=== PATIENT | male | born 1970 ===

== ENCOUNTER 2020-11-10 13:03 | Outpatient (REF) | payer BC, SELFPAY | END 2020-11-10 13:04 | disposition home or self-care (01) | LOC: HO.LAB 13:03 | PROVIDERS: PCP Internal Medicine; Visit Provider Internal Medicine | DX: Z20.828 Contact with and (suspected) exposure to other viral communicable diseases (principal) | CPT/HCPCS: 36415; C9803; U0003 ==

== ENCOUNTER 2021-06-21 10:36 | Outpatient (REF) | payer BC, SELFPAY ==
[2021-06-21 13:49] LABS: MANUAL DIFF FLAG NO
[2021-06-21 14:00] LABS: Glucose Urine UA NEG (NEG); Leukocyte Esterase Urine NEG (NEG); Nitrite Urine NEG (NEG); Urine Blood NEG (NEG); Urine Ketones NEG (NEG); Urine Protein NEG (NEG-TRACE)
[2021-06-21 14:06] LABS: Basophils Percent Auto 0.4 % (0-2); Eosinophils Absolute Auto 0.2 X10*3/uL (0.0-0.4); Eosinophils Percent Auto 2.3 % (0-4); Hematocrit 46.1 % (42-52); Hemoglobin 14.2 g/dl (14.0-18.0); Imm Gran Abs Auto 0.06 X10*3/uL (0.00-0.03); Imm Gran Pct Auto 0.7 % (0.0-0.4); Lymphocytes Absolute Auto 2.3 X10*3/uL (1.2-4.9); Lymphocytes Percent Auto 27.3 % (20-40); Mean Corpuscular HGB Conc 30.8 g/dl (31.0-36.0); Mean Corpuscular Hemoglobin 27.7 pg (27.0-33.0); Mean Platelet Volume 11.1 fL (9.4-12.4); Monocytes Absolute Auto 0.8 X10*3/uL (0.1-1.2); Monocytes Percent Auto 9.2 % (2-11); Neutrophils Percent Auto 60.1 % (45-73); Platelet Count 275 X10*3/uL (160-400); Red Blood Count 5.12 X10*6/uL (4.60-5.80); Red Cell Distribution Width 12.9 % (11.0-16.0); White Blood Count 8.3 X10*3/uL (4.8-10.8)
[2021-06-21 14:07] LABS: Appearance Urine CLEAR; Color Urine YELLOW
[2021-06-21 14:16] LABS: Estimated Average Glucose 111 mg/dL; Hemoglobin A1C 139.1997 umol/L; Hemoglobin A1c % 5.5 %
[2021-06-21 14:34] LABS: Alanine Aminotransferase 29 U/L (0-40); Albumin Level 4.4 g/dL (3.5-5.0); Alkaline Phosphatase 93 U/L (39-117); Anion Gap 12 (12-20); Aspartate Amino Transferase 19 U/L (5-37); Bilirubin Total 0.4 mg/dL (0.0-1.0); Blood Urea Nitrogen 12 mg/dL (9-16); Calcium 9.4 mg/dL (8.4-10.2); Carbon Dioxide 28 mmol/L (22-29); Chloride 104 mmol/L (96-108); Cholesterol 155 mg/dL; Estimated Glomerular Filt Rate > 60; Glucose Fasting 97 mg/dL (60-99); HDL Cholesterol 47 mg/dL; LDL Cholesterol Calculated 94 mg/dl; Potassium 4.7 mmol/L (3.3-5.1); Sodium 139 mmol/L (135-145); Total Protein 7.1 g/dL (6.5-8.0); Triglycerides 73 mg/dL
[2021-06-21 14:55] LABS: Prostate Specific Antigen Scr 3.95 ng/mL (<0.05-4.0); TSH reflex Free T4 0.98 uIU/mL (0.32-4.0); Vitamin D 25-OH Total 23.5 ng/mL (>30)
== END 2021-06-21 10:37 | disposition home or self-care (01) ==
LOC: HO.10HDL 10:36
PROVIDERS: Visit Provider Internal Medicine
DX: Z00.00 Encounter for general adult medical examination without abnormal findings (principal); E55.9 Vitamin D deficiency, unspecified; E78.00 Pure hypercholesterolemia, unspecified; R73.01 Impaired fasting glucose
CPT/HCPCS: 36415; 80053; 80061; 81003; 82306; 83036; 84153; 84443; 85025

== ENCOUNTER → 2021-08-23 14:30 | Outpatient (BNVA) | payer BC, SELFPAY | PROVIDERS: PCP Internal Medicine; Referring Provider Internal Medicine; Visit Provider Nurse Practitioner Family ==

== ENCOUNTER 2021-10-05 10:09 | Day surgery (SDC) | payer BC, SELFPAY ==
[2021-09-27 15:18] VITALS: BMI 31.4
--- NOTE | 2021-10-04 10:30 | P.CONAN_ITS ---
Documented by User: Johanna Cruz NP 10/04/21 10:30 HPI - Anesthesia Eval Consult details Narrative: 51yo M for Colonoscopy [facility] Active Problems Active Problems: All Active Problems (Updated 06/21/21 @ 10:31 by Edenilson Mas MD) Obesity (BMI 30-39.9) (Acute) Impaired fasting glucose (Acute) Pure hypercholesterolemia (Acute) Colon cancer screening (Acute) Annual physical exam (Acute) Past Medical History Medical History Impaired fasting glucose Obesity (BMI 30-39.9) Pure hypercholesterolemia Surgical History Surgical History (Updated 10/05/21 @ 10:17 by Shannon Oswald RN) History of facial surgery History of gallbladder disease Social History Social History Housing: House Alcohol intake: current Alcohol intake frequency: holidays/special occasions only Patient Tobacco Use Status: Never used Tobacco Second Hand Smoke Exposure: Yes Use of substances other than those prescribed or required for medical reasons: No Are you DNR?: No Advance Directives: No Advance Directives Information Provided: Yes service: No Current occupational status: employed 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 [employer] Allergies Allergy/AdvReac Type Severity Reaction Status Date / Time No Known Allergies Allergy Verified 10/05/21 10:16 Exam Exam Date and Time: October 04, 2021 1030 Height,Weight and Vital Signs: Height 5 ft 6 in Weight 88.451 kg Pertinent Lab Results Pertinent Lab Results: Laboratory Tests 06/21/21 06/21/21 10:40 10:40 WBC 8.3 Hgb 14.2 Hct 46.1 Plt Count 275 Sodium 139 Potassium 4.7 Chloride 104 Carbon Dioxide 28 BUN 12 Creatinine 1.16 Assessment and Plan Assessment Anesthesia Assessment: Chart Reviewed Documented by User: Miracle Wong MD 10/05/21 10:29 [facility] Past Medical History Medical History Impaired fasting glucose Obesity (BMI 30-39.9) Pure hypercholesterolemia Family History Family history of problems with anesthesia: No Surgical History Surgical History (Updated 10/05/21 @ 10:17 by Shannon Oswald RN) History of facial surgery History of gallbladder disease History of Problems with Anesthesia: No Social History Social History Housing: House Alcohol intake: current Alcohol intake frequency: holidays/special occasions only Patient Tobacco Use Status: Never used Tobacco Second Hand Smoke Exposure: Yes Use of substances other than those prescribed or required for medical reasons: No Are you DNR?: No Advance Directives: No Advance Directives Information Provided: Yes service: No Current occupational status: employed 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 [employer] Allergies Allergy/AdvReac Type Severity Reaction Status Date / Time No Known Allergies Allergy Verified 10/05/21 10:16 Exam Airway Mallampati Class: II TM Dist: >3cm Neck ROM: Full Heart: rrr Lungs: cta Assessment and Plan Assessment Anesthesia Assessment: Anesthesia Plan Discussed and Chart Reviewed Final Anesthetic Review Family History of Problems with Anesthesia: No History of Problems with Anesthesia: No NPO: Yes ASA Class: II Final Preanesthetic Review: No Changes in Pt Med Stat, Meds/Allgs Chart Reviewed and Consent Obtained/Reviewed Patient Risk: Intermediate Procedure Risk: Intermediate Anesthetic Plan Anesthetic Plan: MAC: Disposition: Standard PACU
[2021-10-05 10:27] VITALS: BP 118/68; PULSE 76; RESP 16; TEMP 36.7; O2SAT 99
[2021-10-05] MEDS: Lactated Ringers 1,000 ML 100 ML IVCONT (10:34)
--- NOTE | 2021-10-05 10:50 | P.HPSUR_ITS ---
Pre-Procedural Eval Section A Date of Service: 10/05/21 Section B Chief Complaint: Screening Relevant Family History (Specify if Yes): No Relevant Social History: None Present Medications: see Short Stay Collaborative assessment Medical History: Significant History (Impaired fasting glucose Obesity (BMI 30- 39.9) Pure hypercholesterolemia) History of Previous Operations: Relevant previous surgery/procedure and date(s) (facial surgery, cholecystectomy) Allergies: Allergies Allergy/AdvReac Type Severity Reaction Status Date / Time No Known Allergies Allergy Verified 10/05/21 10:16 Review of Systems Sugical H&P ROS: Negative: Constitution, Cardiovascular, Respiratory, Neurological, Psychiatric, Hem-Onc, Allergic/Immunologic, Gastrointestinal, Genitourinary, Musculoskeletal, Integumentary, Endocrine and Eyes/Ears/Nose/Throat Exam Surgical H&P Exam: Normal: HEENT, Normal: Heart, Normal: Lungs, Normal: Extremities, Normal: Abdomen, Normal: Skin and Normal: Neurological Plan Diagnosis/Plan: Unchanged I have reviewed the history and physical and performed a pertinent physical examination on my patient. No changes have occurred unless specified.
--- NOTE | 2021-10-05 10:53 | P.OP_ITS ---
Operative Note Operative Note Date of Service: 10/05/21 Narrative: Operative Information Procedure Description: Colonoscopy COLONOSCOPY Instrument: Olympus variable stiffness pediatric scope 190L Colonoscopy Monitoring: Vital signs and clinical assessment, continuous EKG monitoring, Pulse oximetry, Carbon Dioxide monitoring and blood pressure monitoring were done throughout the procedure. Colon withdrawal time was 10 minutes. Procedure: The patient was placed in the left lateral decubitis position and pre-procedure medications were administered. After a digital rectal examination of the ano-rectum, the video colonoscope was inserted into the rectum and advanced through the colon to the cecum/TI. The colonoscope was slowly withdrawn in a retrograde panoramic fashion and the colon mucosa was carefully examined including a retroflexed view of the rectum. Findings and interventions are described below. Procedure Difficulty: easy Findings: Terminal Ileum-normal Cecum: 10 mm sessile polyp removed with cold snare Ascending Colon: normal Transverse Colon -normal Descending Colon:normal Sigmoid Colon: normal Rectum: Retroflexion with small internal hemorrhoids, grade I Anorectum - normal Colon preparation: [place] Bowel Preparation Scale Right colon; 2 Transverse colon: 3 Left colon; 2 (0 = Unprepared colon segment with mucosa not seen due to solid stool that cannot be cleared. 1 = Portion of mucosa of the colon segment seen, but other areas of the colon segment not well seen due to staining, residual stool and/or opaque liquid. 2 = Minor amount of residual staining, small fragments of stool and/or opaque liquid, but mucosa of colon segment seen well. 3 = Entire mucosa of colon segment seen well with no residual staining, small fragments of stool or opaque liquid) Impression and Post Procedure Diagnosis: polyp internal hemorrhoids Plan: High fiber diet leaflet Avoid straining at stool, epsom salts and sitz bath, anusol supps or cream Repeat Colonoscopy in 5 years if adenomatous polyp, otherwise 10 yrs or earlier if clinically indicated Above findings were reviewed with the patient and relevant handouts were provided if indicated.
--- NOTE | 2021-10-05 10:53 | P.BOP_ITS ---
Brief Operative Note Date of Service: 10/05/21 Pre-op diagnosis: colon screening Post-op diagnosis: same Procedure: see op note Surgeon: Heath Maldonado MD Anesthesia: MAC Was an Interactive Marketing Strategist used for this Procedure?: No Estimated blood loss (mL): 0 Condition: stable Disposition: PACU
[2021-10-05 11:25] VITALS: BP 94/71; PULSE 76; RESP 18; TEMP 37.1; O2SAT 99
[2021-10-05 11:40] VITALS: BP 115/72; PULSE 68; RESP 17; TEMP 37.1; O2SAT 100
== END 2021-10-05 12:04 | disposition home or self-care (01) ==
PROVIDERS: PCP Internal Medicine; Visit Provider Internal Medicine Gastroenterology
PROC: 0DJD8ZZ Inspection of Lower Intestinal Tract, Via Natural or Artificial Opening Endoscopic (ICD-10-PCS; CPT 45378; principal; 2021-10-05 11:50)
DX: Z12.11 Encounter for screening for malignant neoplasm of colon (principal); D12.0 Benign neoplasm of cecum; K64.0 First degree hemorrhoids; R73.01 Impaired fasting glucose; E78.00 Pure hypercholesterolemia, unspecified; E66.9 Obesity, unspecified; Z68.31 Body mass index [BMI] 31.0-31.9, adult
CPT/HCPCS: 45385; 88305

== ENCOUNTER → 2021-10-17 09:27 | Outpatient (BNVA) | payer BC, SELFPAY | PROVIDERS: PCP Internal Medicine; Referring Provider Internal Medicine; Visit Provider Nurse Practitioner Family ==

== ENCOUNTER 2022-08-21 11:16 | Outpatient (REF) | payer BC, SELFPAY ==
[2022-08-21 13:46] LABS: MANUAL DIFF FLAG NO
[2022-08-21 13:52] LABS: Basophils Absolute Auto 0.1 X10*3/uL (0.0-0.2); Basophils Percent Auto 0.9 % (0-2); Eosinophils Absolute Auto 0.3 X10*3/uL (0.0-0.4); Hematocrit 46.1 % (42.0-52.0); Hemoglobin 14.8 g/dl (14.0-18.0); Imm Gran Abs Auto 0.04 X10*3/uL (0.00-0.03); Imm Gran Pct Auto 0.6 % (0.0-0.4); Lymphocytes Absolute Auto 2.5 X10*3/uL (1.2-4.9); Lymphocytes Percent Auto 37.6 % (20-40); Mean Corpuscular HGB Conc 32.1 g/dl (31.0-36.0); Mean Corpuscular Hemoglobin 28.3 pg (27.0-33.0); Mean Corpuscular Volume 88.1 fL (80.0-98.0); Mean Platelet Volume 10.9 fL (9.4-12.4); Monocytes Absolute Auto 0.5 X10*3/uL (0.1-1.2); Monocytes Percent Auto 7.2 % (2-11); Neutrophils Absolute Auto 3.3 x10*3/uL (2.0-8.3); Neutrophils Percent Auto 49.7 % (45-73); Platelet Count 261 X10*3/uL (160-400); Red Blood Count 5.23 X10*6/uL (4.60-5.80); Red Cell Distribution Width 12.5 % (11.0-16.0); White Blood Count 6.6 X10*3/uL (4.8-10.8)
[2022-08-21 13:57] LABS: Appearance Urine Clear; Color Urine Yellow; Glucose Urine UA Negative (Negative); Leukocyte Esterase Urine Negative (Negative); Nitrite Urine Negative (Negative); PH 5.5 (5.0-9.0); Specific Gravity - Urine 1.025 (1.005-1.025); Urine Blood Negative (Negative); Urine Ketones Negative (Negative); Urine Protein Negative (Neg-Trace)
[2022-08-21 14:03] LABS: Alanine Aminotransferase 22 U/L (0-40); Albumin Level 4.4 g/dL (3.5-5.0); Alkaline Phosphatase 69 U/L (39-117); Anion Gap 15 (12-20); Aspartate Amino Transferase 17 U/L (5-37); Bilirubin Total 0.5 mg/dL (0.0-1.0); Blood Urea Nitrogen 15 mg/dL (9-16); Calcium 9.4 mg/dL (8.4-10.2); Carbon Dioxide 27 mmol/L (22-29); Chloride 103 mmol/L (96-108); Cholesterol 192 mg/dL; Estimated Average Glucose 111 mg/dL; Estimated Glomerular Filt Rate > 60; Glucose Fasting 103 mg/dL (60-99); HDL Cholesterol 54 mg/dL; Hemoglobin A1c % 5.5 %; LDL Cholesterol Calculated 124 mg/dl; Potassium 4.5 mmol/L (3.3-5.1); Sodium 140 mmol/L (135-145); Triglycerides 72 mg/dL
[2022-08-21 14:22] LABS: Syphilis Screen Nonreactive (Nonreactive)
[2022-08-21 14:28] LABS: Prostate Specific Antigen 3.36 ng/mL (<0.05-4.0); TSH reflex Free T4 1.05 uIU/mL (0.32-4.0); Vitamin D 25-OH Total 17.7 ng/mL (>30)
[2022-08-21 16:48] LABS: CT PCR NOT DETECTED (Not Detect.); NG PCR NOT DETECTED (Not Detect.)
[2022-08-22 08:43] LABS: HIV AB/AG Nonreactive (Nonreactive); HIV Num 1 0.07 S/CO (0.00-0.99)
== END 2022-08-21 11:17 | disposition home or self-care (01) ==
LOC: HO.10HDL 11:16
PROVIDERS: Visit Provider Internal Medicine
DX: Z00.00 Encounter for general adult medical examination without abnormal findings (principal); Z12.5 Encounter for screening for malignant neoplasm of prostate; Z11.4 Encounter for screening for human immunodeficiency virus [HIV]; Z11.3 Encounter for screening for infections with a predominantly sexual mode of transmission; E78.00 Pure hypercholesterolemia, unspecified; R73.01 Impaired fasting glucose; R30.0 Dysuria; E55.9 Vitamin D deficiency, unspecified; Z20.2 Contact with and (suspected) exposure to infections with a predominantly sexual mode of transmission
CPT/HCPCS: 80053; 80061; 81003; 82306; 83036; 84153; 84443; 85025; 86780; 87389; 87491; 87591

== ENCOUNTER → 2023-02-23 10:04 | Outpatient (BNVA) | payer BC, SELFPAY | PROVIDERS: PCP Internal Medicine; Visit Provider Urology | DX: Z13.89 Encounter for screening for other disorder (principal) ==

== ENCOUNTER 2023-04-12 14:22 | Outpatient (REF) | payer BC, SELFPAY | END 2023-04-12 14:23 | disposition home or self-care (01) | LOC: HO.LNP 14:22 | PROVIDERS: PCP Internal Medicine; Visit Provider Urology | DX: Z30.2 Encounter for sterilization (principal); F41.8 Other specified anxiety disorders | CPT/HCPCS: 55250; 88302 ==

== ENCOUNTER 2023-04-12 14:22 | Outpatient (AMB) | payer BC, SELFPAY ==
--- NOTE | 2023-04-12 14:27 | A.OFFVIS_ITS ---
Intake Intake Visit Reasons: Vasectomy Intake Note: Pt presents to the office today for a vasectomy. Urinalysis done. Allergies No Known Allergies Allergy (Verified 04/12/23 14:28) HPI HPI Comments History of Present Illness Details Ramón is a 52-year-old male who presents to the office for vasectomy procedure. The segment of right and left vas deferens was removed and sent to pathology. The patient is instructed to come back in 3 months for semen analysis to confirm that there is no further sperm. He is advised to use control until the analysis is done. Plan: Follow-up after 3 months for semen analysis. 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 Cognitive needs: No Hearing needs: No Vision needs: No Results AMB Urinalysis, Automated UA Leukoctes 0 Javier/uL Last Edit by Maria Fernanda Ledesma MA on 04/12/23 14:41 UA Nitrite Negative Last Edit by Maria Fernanda Ledesma MA on 04/12/23 14:41 UA Urobilinogen 0.2 mg/dL Last Edit by Maria Fernanda Ledesma MA on 04/12/23 14:41 UA Protein 0 mg/dL Last Edit by Maria Fernanda Ledesma MA on 04/12/23 14:41 UA pH 5.5 Last Edit by Maria Fernanda Ledesma MA on 04/12/23 14:41 UA Blood 0 Russ/uL Last Edit by Maria Fernanda Ledesma MA on 04/12/23 14:41 UA Specific [place] 1.030 Last Edit by Maria Fernanda Ledesma MA on 04/12/23 14:41 UA Ketone Negative Last Edit by Maria Fernanda Ledesma MA on 04/12/23 14:41 UA Bilirubin 0 mg/dL Last Edit by Maria Fernanda Ledesma MA on 04/12/23 14:41 UA Glucose 0 mg/dL Last Edit by Maria Fernanda Ledesma MA on 04/12/23 14:41 Results Reviewed Results Reviewed: Laboratory Last Values Urine pH (Auto) 5.5 04/12/23 14:29 Specific [place] (Auto) 1.030 04/12/23 14:29 Urine Protein (Auto) 0 mg/dL 04/12/23 14:29 Glucose (UA)(Auto) 0 mg/dL 04/12/23 14:29 Urine Ketones (Auto) Negative 04/12/23 14:29 Urine Blood (Auto) 0 Russ/uL 04/12/23 14:29 Urine Nitrite (Auto) Negative 04/12/23 14:29 Urine Bilirubin (Auto) 0 mg/dL 04/12/23 14:29 Urine Urobilinogen (Auto) 0.2 mg/dL 04/12/23 14:29 Leukocyte Esterase (Auto) 0 Javier/uL 04/12/23 14:29 Assessment & Plan Assessment & Plan (1) Anxiety about health: Code(s): F41.8 - Other specified anxiety disorders (2) Encounter for vasectomy: Code(s): Z30.2 - Encounter for sterilization Plan Follow-up after 3 months for semen analysis. Orders: Orders AMB Urinalysis Automated 04/12/23 Z13.9 - Encounter for screening, unspecified Surgical 04/12/23 Z30.09 - Encounter for other general counseling and advice on contraception Coding Level of Care Code Procedure Only Diagnoses Anxiety about health F41.8 Encounter for vasectomy Z30.2 CPT Codes Office Procedure - CPT: 42703 - Vasectomy ([id number]) Vasectomy Details: Preoperative diagnosis: Anxiety regarding Postoperative diagnosis: Anxiety regarding unplanned Procedure: Bilateral vasectomy Informed consent had been completed. Preoperative and postoperative instructions were provided to the patient. The penis was elevated using a rubber band that was attached to the patient's shirt. Both vasa were palpated through the skin using a 3 finger technique and the penoscrotal junction was prepped with Betadine. After Betadine application the left vas was elevated using a 3 finger grasping technique. 1% lidocaine was used to create a subdermal bubble.? Approximately 2 minutes were allowed to for local anesthetic uptake. Further anesthetic was then advanced using the 25-gauge needle along the vasa in a proximal fashion. Using the sharp spreading instrument the scrotum was spread longitudinally in line with the vasa. The vasa was elevated from the scrotum using a ring clamp. Care was taken to elevate the superior portion of the vas. Battery powered cautery was used to partially divide the vasal sheath and to strip the vasal sheath from the vasa. Using the sharp spreading instrument the vasal sheath was removed from the covering of this segment of the vas. The vasa was grasped with a forcep clamp and elevated from the incision. The ring clamp was placed so it grasped the elevated vas. The vasal sheath was dissected from the vas in a proximal and distal fashion. This allowed the blood vessels of the vasa to retract from the vasa. Using the battery-powered cautery a partial division was made in the proximal vas. The battery-powered cautery was used to cauterize the proximal end of the vas. This was then cut and allowed to retract into the vasal sheath. A clip was placed on the vasal sheath to create a fascial interposition. The distal portion of the vas was then cut in order to obtain a segment of vasa. The vasa were allowed to retract back into the scrotum. A small snap was then used to approximate the skin edges. A similar procedure was repeated on the right side. He tolerated the procedure well. A gauze was applied. An ice pack was applied to assist with minimizing swelling. Postoperative instructions were confirmed. He understands the need to continue to use control methods. A semen sample should be brought for inspection under the microscope in 12 weeks. Vasectomy performed by: Chong Ford Informed consent given: Yes Informed consent signed: Yes Time out checklist: patient, procedure, positioning of patient, allergies confirmed and team agrees on procedure Preoperative sedation: No Anesthetic used: other Specimens: vas segments sent to pathology [id number] - Vasectomy
== END 2023-04-12 16:21 | disposition home or self-care (01) ==
LOC: HO.HUSH 14:23
PROVIDERS: PCP Internal Medicine; Visit Provider Urology
DX: Z30.2 Encounter for sterilization (principal); F41.8 Other specified anxiety disorders
CPT/HCPCS: 55250

== ENCOUNTER 2023-07-12 14:08 | Outpatient (AMB) | payer BC, SELFPAY ==
--- NOTE | 2023-07-12 14:10 | A.OFFVIS_ITS ---
Intake Intake Visit Reasons: 3m seman analysis Intake Note: Patient presents today for a 3 month follow-up on Semen Urinalysis: Meds- None Allergies to Antibiotic- No Known Allergies Blood Thinner- None Street Light Repairer Required: No Accompanied by: Self / Same As Patient Allergies No Known Allergies Allergy (Verified 07/12/23 14:30) HPI HPI Comments History of Present Illness Details Ramón is a 53-year-old male who presents today to the office for a follow-up. 07/12/2023? He is followed today for semen analysis. He was last seen by me on 04/12/2023 for Vasectomy. The patient was advised to follow-up after 3 months for semen analysis during that time and prn for any concerns. He denies any swelling in the scrotum. He denies any problems with urination and intercourse at this time. Examination of the scrotum: normal; no swelling. Evaluation today--UA-- leukocytes: negative; blood: negative. Microscopic evaluation of semen: no sperm was visualized. Review of charts: Last visit: 04/12/2023? Ramón is a 52-year-old male who presents to the office for vasectomy procedure. The segment of right and left vas deferens was removed and sent to pathology.? The patient is instructed to come back in 3 months for semen analysis to confirm that there is no further sperm.? He is advised to use control until the analysis is done.? 07/12/2023: Plan: Follow up as needed. 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 Cognitive needs: No Hearing needs: No Vision needs: No Review of Systems Const All systems reviewed & are unremarkable except as noted in HPI and below Reports no additional complaints Eyes Reports no additional complaints ENT Denies neck pain Card Denies leg edema Resp Denies cough GI Denies constipation Musc Reports no additional complaints and Denies neck pain Skin/Breast Denies rash and Denies unusual bruising Neuro Reports no additional complaints Psych Reports no additional complaints Endo Reports no additional complaints Rasheed/Lymph Reports no additional complaints Aller/Immun Reports no additional complaints Results AMB Urinalysis, Automated UA Leukoctes 0 Javier/uL Last Edit by Alfredo Grey Derik on 07/12/23 14:44 UA Nitrite Negative Last Edit by Alfredo Grey [facility] on 07/12/23 14:44 UA Urobilinogen 0.2 mg/dL Last Edit by Alfredo Grey [facility] on 07/12/23 14:4 4 UA Protein 15 mg/dL Last Edit by Alfredo Grey [facility] on 07/12/23 14:44 UA pH 5.5 Last Edit by Alfredo Grey [facility] on 07/12/23 14:44 UA Blood 0 Russ/uL Last Edit by Alfredo Grey [facility] on 07/12/23 14:44 UA Specific [place] 1.030 Last Edit by Alfredo Grey Derik on 07/12/23 14: 44 UA Ketone Negative Last Edit by Alfredo Grey [facility] on 07/12/23 14:44 UA Bilirubin 0 mg/dL Last Edit by Alfredo Grey [facility] on 07/12/23 14:44 UA Glucose 0 mg/dL Last Edit by Alfredo Grey [facility] on 07/12/23 14:44 Results Reviewed Results Reviewed: Laboratory Last Values Urine pH (Auto) 5.5 07/12/23 14:44 Specific [place] (Auto) 1.030 07/12/23 14:44 Urine Protein (Auto) 15 mg/dL 07/12/23 14:44 Glucose (UA)(Auto) 0 mg/dL 07/12/23 14:44 Urine Ketones (Auto) Negative 07/12/23 14:44 Urine Blood (Auto) 0 Russ/uL 07/12/23 14:44 Urine Nitrite (Auto) Negative 07/12/23 14:44 Urine Bilirubin (Auto) 0 mg/dL 07/12/23 14:44 Urine Urobilinogen (Auto) 0.2 mg/dL 07/12/23 14:44 Leukocyte Esterase (Auto) 0 Javier/uL 07/12/23 14:44 Assessment & Plan Assessment & Plan (1) Anxiety about health: Code(s): F41.8 - Other specified anxiety disorders (2) S/P vasectomy: Code(s): Z98.52 - Vasectomy status Plan Follow up as needed. Orders: Orders AMB Urinalysis Automated 07/12/23 Z13.9 - Encounter for screening, unspecified Patient Instructions: The patient had an opportunity to ask questions regarding treatment plan. All questions were answered. Imaging, Laboratory studies and physical exam results were discussed and reviewed in detail. No major barriers to understanding were identified. The patient expressed understanding and agreement with the above treatment plan.? ? ? The patient is aware they should contact our office by phone for worsening of their current condition or the appearance of new symptoms. Compliance is encouraged with any medications and followup testing that is ordered.? ? ? It is a privilege to be allowed the opportunity to participate in the urologic care of your patient. If you have any questions or concerns regarding treatment for the above conditions please do not hesitate to contact me. The office telephone contact is [phone].? ? ? This note is constructed in part using voice recognition software. While every effort has been made to ensure accuracy picker and packer errors may have been included.? ? ? Yours sincerely,? ? ? Chong Ford MD? ? Coding Level of Care Code Est Pt Level 3 (21264) Diagnoses Anxiety about health F41.8 S/P vasectomy Z98.52
== END 2023-07-12 15:33 | disposition home or self-care (01) ==
PROVIDERS: PCP Internal Medicine; Visit Provider Urology
DX: F41.8 Other specified anxiety disorders (principal); Z98.52 Vasectomy status
CPT/HCPCS: 99213

== ENCOUNTER → 2023-07-12 14:08 | Outpatient (BNVA) | payer BC, SELFPAY | PROVIDERS: PCP Internal Medicine; Visit Provider Urology | DX: Z30.8 Encounter for other contraceptive management (principal); Z98.52 Vasectomy status | CPT/HCPCS: 81003 ==

== ENCOUNTER 2023-11-02 12:03 | Outpatient (REF) | payer BC, SELFPAY ==
[2023-11-02 13:50] LABS: Syphilis Screen Nonreactive (Nonreactive)
[2023-11-02 14:49] LABS: CT PCR NOT DETECTED (Not Detect.); NG PCR NOT DETECTED (Not Detect.)
[2023-11-03 12:38] LABS: Trichomonas vag. RNA Ur Male NOT DETECTED (NOT DETECTED)
[2023-11-05 03:47] LABS: HBS Num1 0.12 mIU/mL (0-7.99); HBc Num1 0.07 S/CO (0.00-0.79); HBsAGNum1 0.31 S/CO (0.00-0.99); HIV AB/AG Nonreactive (Nonreactive); HIV Num 1 0.05 S/CO (0.00-0.99); Hepatitis B Core Antibody Nonreactive (Nonreactive); Hepatitis B Surface Antigen Negative (Negative); ~HepC Num1 0.23 S/CO (0.00-0.79); ~Hepatitis B Surface Antibody NONREACTIVE (Nonreactive); ~Hepatitis C Antibody Nonreactive (Nonreactive)
== END 2023-11-02 12:04 | disposition home or self-care (01) ==
LOC: HO.10HDL 12:03
PROVIDERS: Visit Provider Internal Medicine
DX: Z11.4 Encounter for screening for human immunodeficiency virus [HIV] (principal); Z20.2 Contact with and (suspected) exposure to infections with a predominantly sexual mode of transmission
CPT/HCPCS: 0353U; 86704; 86706; 86780; 86803; 87340; 87389; 87661

== ENCOUNTER 2023-12-18 16:45 | Outpatient (AMB) | payer BC, SELFPAY ==
[2023-12-18 16:58] VITALS: BP 128/80; PULSE 86; O2SAT 97; BMI 34.9
--- NOTE | 2023-12-18 16:58 | MHC.PC.OV ---
Vital Signs 12/18/23 16:58 Height 5 ft 6 in Weight 216 lb 4 oz BMI 34.9 BP 128/80 Blood Pressure Location Lt brachial Position Sitting Pulse 86 Pulse Source Pulse Oximeter Pulse Oximetry (%) 97 Oxygen Delivery Method Room Air Intake Visit Reasons: PE Quality Assurance Monitor Final Required: No Accompanied by: Self / Same As Patient Allergies No Known Allergies Allergy (Verified 12/18/23 17:11) Medication List - Last Reconciled 12/18/23 by Edenilson Mas MD No Known Home Meds Tobacco use date assessed: 12/18/23 Dental Screening Dental Screen Date: 12/18/23 Did you have a dental visit in the last 12 months?: Yes Did you have a dental problem in the last 6 months where you did not have access to dental care?: No Was dental information given to patient?: Patient has dentist HPI MARQUITA HPI Details Patient comes in today for his annual physical examination - has not been seen since 08/21/2022 Patient states that he feels okay He denies any headaches or dizziness Denies any chest pains, no SOB No nausea/vomiting, no abdominal pain No change in bowel habits noted Denies any acute urinary symptoms He had his screening colonoscopy done back on 10/05/2021 - (+) tubular adenoma so he is recommended to get a repeat colonoscopy in 5 years (2025) PFSH Medical History Vitamin D deficiency Tubular adenoma Obesity (BMI 30-39.9) Impaired fasting glucose Pure hypercholesterolemia Surgical History Hx of vasectomy Hx of colonoscopy History of facial surgery History of gallbladder disease Social History Housing: House Alcohol intake: current Alcohol intake frequency: holidays/special occasions only Patient Tobacco Use Status: Never used Tobacco e-Cigarette/Vaping Use: Never Used Second Hand Smoke Exposure: Yes service: No Current occupational status: employed 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 1. Little interest or pleasure in doing things: not at all 2. Feeling down, depressed, or hopeless: not at all 3. Trouble falling or staying asleep, or sleeping too much: not at all 4. Feeling tired or having little energy: not at all 5. Poor appetite or overeating: not at all 6. Feeling bad about yourself - or that you are a failure or have let yourself or your family down: not at all 7. Trouble concentrating on things, such as reading the newspaper or watching television: not at all 8. Moving or speaking so slowly that other people could have noticed. Or the opposite - being so fidgety or restless that you have been moving around a lot more than usual: not at all 9. Thoughts that you would be better off or of hurting yourself in some way: not at all Total score: 0 Depression Screening Interpretation: Negative Depression Screening Done: Yes 65154 - PHQ-9 Billing: Yes Source: Developed by Drs. Hang Light, Lorie Donovan, Tawanda Johansen and colleagues, with an educational edy from [employer]. Thrive Questionnaire Date Thrive assessed: 12/18/23 I am a: Patient What is your living situation today?: I have a steady place to live Within the past 12 months, did the food you bought not last and you didn't have the money to get more?: Never true Within the past 12 months, did you worry whether your food would run out before you got money to buy more?: Never true Do you have trouble paying for medicines?: No Do you have trouble getting transportation to medical appointments?: No Do you have trouble paying your heating and electricity bill?: No Do you have trouble taking care of your child, family member or friend?: No Do you have trouble with day-to-day activities such as bathing, preparing meals, shopping, managing finances, etc.?: No Are you currently unemployed and looking for a job?: No Are you interested in more education?: No Please select the resources that you would like help with: None Currently or been in a relationship where the following occur: no concerns reported THRIVE Score: 0 AUDIT C Alcohol Use Questionnaire (AUDIT-C) 1. How often do you have a drink containing alcohol?: Monthly or less 2. How many drinks containing alcohol do you have on a typical day when you are drinking?: 1 or 2 3. How often do you have six or more drinks on one occasion?: Never Total Score: 1 Score Reviewed/Action Taken: Yes ANSELMO-7 AMB Questionnaire ANSELMO-7 Date ANSELMO - 7 assessed: 12/18/23 Feeling nervous, anxious, or on edge: 0 = Not at all Not being able to stop or control worryin = Not at all Worrying too much about different things: 0 = Not at all Trouble relaxin = Not at all Being so restless that it is hard to sit still: 0 = Not at all Becoming easily annoyed or irritable: 0 = Not at all Feeling afraid as if something awful might happen: 0 = Not at all Total ANSELMO-7 score (0-4 normal; 5-9 mild; 10-14 moderate; 15-21 severe): 0 Source: Developed by Drs. Hang Light, Lorie Donovan, Tawanda Johansen and colleagues, with an educational edy from [employer]. Review of Systems Const Denies chills, Denies difficulty sleeping, Denies fatigue, Denies fever(s), Denies headache(s), Denies malaise and Denies weakness Eyes Denies blurry vision, Denies change in vision, Denies irritation and Denies itchy eyes ENT Denies dysphagia, Denies dizziness, Denies otalgia, Denies headache(s), Denies nasal congestion, Denies neck pain, Denies odynophagia and Denies sore throat Card Denies chest pain, Denies rapid heart rate, Denies irregular heart rhythm, Denies palpitations and Denies dyspnea Resp Denies chest congestion, Denies cough, Denies dyspnea and Denies wheezing GI Denies abdominal pain, Denies bloating, Denies constipation, Denies dysphagia, Denies heartburn, Denies diarrhea, Denies nausea, Denies odynophagia and Denies vomiting Denies hematuria, Denies difficulty urinating, Denies dysuria, Denies urinary frequency and Denies urinary urgency Musc Denies back pain, Denies arthralgias, Denies joint swelling, Denies muscle weakness and Denies neck pain Skin/Breast Denies change in pigmentation, Denies lesions, Denies rash and Denies unusual bruising Neuro Denies dizziness, Denies headache(s), Denies paresthesias and Denies weakness Endo Denies fatigue and Denies palpitations Aller/Immun Denies itchy eyes and Denies wheezing Physical exam (Primary Care) Vital Signs: Last Vital Signs Pulse 86 12/18/23 16:58 BP 128/80 12/18/23 16:58 Pulse Ox 97 12/18/23 16:58 Oxygen Delivery Method Room Air 12/18/23 16:58 BMI result Body Mass Index 34.9 Tobacco/Smoking Status: Tobacco use Status Tobacco use date assessed 12/18/23 12/18/23 17:04 Patient Tobacco Use Status Never used Tobacco 12/18/23 17:04 e-Cigarette/Vaping Use Never Used 12/18/23 17:04 PHQ-9: PHQ-9 Score PHQ-9: Total score 0 12/18/23 17:04 Depression Screening Interpretation: Negative Thrive Assessment: Date of Thrive Assessment Date Thrive assessed 12/18/23 12/18/23 17:04 Currently or been in a relationship where the following occur: no concerns reported Const General: no acute distress, alert and awake Orientation/consciousness: patient oriented x3 HENMT Head: Yes normocephalic and Yes atraumatic Ears: external ears normal, TM's normal bilaterally and EAC's normal General nose exam: No nasal discharge present Face and sinus: Yes normal facial exam and Yes sinuses nontender Teeth and gingiva: dentition normal Throat: Yes posterior oropharynx normal and Yes tonsils normal (no TP congestion) Eyes Eyelids: Yes eyelids normal Conjunctivae: conjunctivae normal Pupils: Equal, round and reactive pupils present EOM: EOMs intact bilaterally Neck Neck: Yes no lymphadenopathy and Yes supple Thyroid: Thyroid normal Resp Auscultation: clear to auscultation bilaterally, no rales and no wheezes Cardio Rate: regular rate Rhythm: regular rhythm Heart sounds: no murmurs GI Palpation (GI): Soft to palpation, nontender and No hepatosplenomegaly present Auscultation: normal bowel sounds General: Yes no CVA tenderness Back/Spine/Pelvis Back: no CVA tenderness Thoracic/Lumbar Spine: thoracic and lumbar spine normal to inspection Skin Lesions: no lesions Rashes: no rashes Neuro General: patient oriented x3, moves all extremities, no focal motor deficits and CN's II-XI intact bilaterally Cranial nerves: Yes Equal, round and reactive pupils present Cognition (Neuro): normal cognition Gait exam (Neuro): Normal gait present Extrem General: Yes no clubbing, cyanosis or edema Assessment and Plan Assessment & Plan (1) Annual physical exam: Code(s): Z00.00 - Encounter for general adult medical examination without abnormal findings Plan: Check labs He is up-to-date with his colon cancer screening - is due for repeat colonoscopy in 2025 due to (+) tubular adenoma (2) Pure hypercholesterolemia: Code(s): E78.00 - Pure hypercholesterolemia, unspecified Plan: Reinforced low cholesterol diet Will recheck his fasting lipids for follow up (3) Impaired fasting glucose: Code(s): R73.01 - Impaired fasting glucose Plan: Reinforced low calorie diet/exercise as tolerated FBS was slightly elevated but HgbA1c was normal at 5.5% when last checked in August 2022 Will recheck his FBS and HgbA1c for follow up (4) Vitamin D deficiency: Code(s): E55.9 - Vitamin D deficiency, unspecified Plan: Advised that his Vitamin D level was low when last checked in August 2022 Will recheck his Vitamin D level for follow up and if it still low, will start him on Vitamin D supplements (5) Elevated PSA: Code(s): R97.20 - Elevated prostate specific antigen [PSA] Plan: Advised that his serum PSA was slightly higher than recommended at 3.36 (<2.5 is normal) when last checked in August 2022 Will recheck his PSA level for follow up and if his level remains elevated, will consider referring him to urology for further evaluation and management (6) Obesity (BMI 30-39.9): Code(s): E66.9 - Obesity, unspecified Plan: Reinforced diet/exercise as tolerated/lose weight Has gained a few pounds again since his last visit but states that he works out and lifts weight at the gym at least 3 times a week so some of his weight gain may be due to increased muscle mass Plan Follow up in 6 months Orders: Orders Complete Blood Count Auto Diff Today D64.9 - Anemia, unspecified, Z00.00 - Encounter for general adult medical examination without abnormal findings Comprehensive [place]. Panel Fast Today E78.00 - Pure hypercholesterolemia, unspecified, Z00.00 - Encounter for general adult medical examination without abnormal findings UA CC w/rflx Micro + Cult Today R30.0 - Dysuria, Z00.00 - Encounter for general adult medical examination without abnormal findings Vitamin D 25-OH Total Today E55.9 - Vitamin D deficiency, unspecified, Z00.00 - Encounter for general adult medical examination without abnormal findings Lipid Panel Today E78.00 - Pure hypercholesterolemia, unspecified, Z00.00 - Encounter for general adult medical examination without abnormal findings TSH reflex Free T4 Today E78.00 - Pure hypercholesterolemia, unspecified, Z00.00 - Encounter for general adult medical examination without abnormal findings Prostate Specific Antigen Today N40.0 - Benign prostatic hyperplasia without lower urinary tract symptoms, Z00.00 - Encounter for general adult medical examination without abnormal findings Hemoglobin A1c Today R73.01 - Impaired fasting glucose, Z00.00 - Encounter for general adult medical examination without abnormal findings Coding Level of Care Code Est Pt Prev Care 40-64y(69808) Diagnoses Annual physical exam Z00.00 Pure hypercholesterolemia E78.00 Impaired fasting glucose R73.01 Vitamin D deficiency E55.9 Elevated PSA R97.20 Obesity (BMI 30-39.9) E66.9
== END 2023-12-18 17:21 | disposition home or self-care (01) ==
PROVIDERS: PCP Internal Medicine; Visit Provider Internal Medicine
DX: Z00.00 Encounter for general adult medical examination without abnormal findings (principal); E78.00 Pure hypercholesterolemia, unspecified; Z68.34 Body mass index [BMI] 34.0-34.9, adult; E66.9 Obesity, unspecified; R73.01 Impaired fasting glucose; E55.9 Vitamin D deficiency, unspecified; R97.20 Elevated prostate specific antigen [PSA]
CPT/HCPCS: 99396

== ENCOUNTER 2024-07-18 14:43 | Outpatient (AMB) | payer BC, SELFPAY ==
[2024-07-18 14:54] VITALS: BP 120/82; PULSE 56; O2SAT 97; BMI 34.3
--- NOTE | 2024-07-18 14:54 | MHC.PC.OV ---
Vital Signs 07/18/24 14:54 Height 5 ft 6 in Weight 212 lb 6 oz BMI 34.3 BP 120/82 Blood Pressure Location Lt brachial Position Sitting Pulse 56 Pulse Source Pulse Oximeter Pulse Oximetry (%) 97 Oxygen Delivery Method Room Air Intake Visit Reasons: 6 month f/u Lumber Mover Required: No Accompanied by: Self / Same As Patient Allergies No Known Allergies Allergy (Verified 07/19/24 04:51) Medication List - Last Reconciled 07/19/24 by Edenilson Mas MD No Known Home Meds Tobacco use date assessed: 07/18/24 Dental Screening Dental Screen Date: 07/18/24 Did you have a dental visit in the last 12 months?: Yes Did you have a dental problem in the last 6 months where you did not have access to dental care?: No Was dental information given to patient?: Patient has dentist HPI 6 month f/u HPI Details Patient comes in today for his follow up visit States that he feels okay He denies any headaches or dizziness Denies any chest pains, no SOB No nausea/vomiting, no abdominal pain No change in bowel habits noted He was not able to get his labs done when they were ordered at his last visit earlier this year - states that he will try to get them done sometime next week as he has a day off then [facility] Medical History Vitamin D deficiency Tubular adenoma Obesity (BMI 30-39.9) Impaired fasting glucose Pure hypercholesterolemia Surgical History Hx of vasectomy Hx of colonoscopy History of facial surgery History of gallbladder disease Social History Housing: House Alcohol intake: current Alcohol intake frequency: holidays/special occasions only Patient Tobacco Use Status: Never used Tobacco e-Cigarette/Vaping Use: Never Used Second Hand Smoke Exposure: Yes service: No Current occupational status: employed 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 1. Little interest or pleasure in doing things: not at all 2. Feeling down, depressed, or hopeless: not at all 3. Trouble falling or staying asleep, or sleeping too much: not at all 4. Feeling tired or having little energy: not at all 5. Poor appetite or overeating: not at all 6. Feeling bad about yourself - or that you are a failure or have let yourself or your family down: not at all 7. Trouble concentrating on things, such as reading the newspaper or watching television: not at all 8. Moving or speaking so slowly that other people could have noticed. Or the opposite - being so fidgety or restless that you have been moving around a lot more than usual: not at all 9. Thoughts that you would be better off or of hurting yourself in some way: not at all Total score: 0 Depression Screening Interpretation: Negative Depression Screening Done: Yes 95326 - PHQ-9 Billing: Yes Source: Developed by Drs. Hang Light, Lorie Donovan, Tawanda Johansen and colleagues, with an educational edy from [email or web address]. Thrive Questionnaire Date Thrive assessed: 07/18/24 I am a: Patient What is your living situation today?: I have a steady place to live Within the past 12 months, did the food you bought not last and you didn't have the money to get more?: Never true Within the past 12 months, did you worry whether your food would run out before you got money to buy more?: Never true Do you have trouble paying for medicines?: No Do you have trouble getting transportation to medical appointments?: No Do you have trouble paying your heating and electricity bill?: No Do you have trouble taking care of your child, family member or friend?: No Do you have trouble with day-to-day activities such as bathing, preparing meals, shopping, managing finances, etc.?: No Are you currently unemployed and looking for a job?: No Are you interested in more education?: No Please select the resources that you would like help with: None Currently or been in a relationship where the following occur: No concerns reported THRIVE Score: 0 AUDIT C Alcohol Use Questionnaire (AUDIT-C) 1. How often do you have a drink containing alcohol?: Monthly or less 2. How many drinks containing alcohol do you have on a typical day when you are drinking?: 1 or 2 3. How often do you have six or more drinks on one occasion?: Never Total Score: 1 Score Reviewed/Action Taken: Yes ANSELMO-7 AMB Questionnaire ANSELMO-7 Date ANSELMO - 7 assessed: 07/18/24 Feeling nervous, anxious, or on edge: 0 = Not at all Not being able to stop or control worryin = Not at all Worrying too much about different things: 0 = Not at all Trouble relaxin = Not at all Being so restless that it is hard to sit still: 0 = Not at all Becoming easily annoyed or irritable: 0 = Not at all Feeling afraid as if something awful might happen: 0 = Not at all Total ANSELMO-7 score (0-4 normal; 5-9 mild; 10-14 moderate; 15-21 severe): 0 Source: Developed by Drs. Hang Light, Lorie Donovan, Tawanda Johansen and colleagues, with an educational edy from [email or web address]. Review of Systems Const Denies difficulty sleeping, Denies fatigue, Denies fever(s) and Denies headache(s) ENT Denies dysphagia, Denies dizziness, Denies otalgia, Denies headache(s), Denies neck pain, Denies odynophagia and Denies sore throat Card Denies chest pain, Denies irregular heart rhythm, Denies palpitations and Denies dyspnea Resp Denies chest congestion, Denies cough and Denies dyspnea GI Denies abdominal pain, Denies constipation, Denies dysphagia, Denies heartburn, Denies diarrhea, Denies nausea, Denies odynophagia and Denies vomiting Denies difficulty urinating, Denies dysuria and Denies urinary frequency Musc Denies back pain, Denies arthralgias and Denies neck pain Skin/Breast Denies rash Neuro Denies dizziness, Denies headache(s) and Denies paresthesias Endo Denies fatigue and Denies palpitations Physical exam (Primary Care) Vital Signs: Last Vital Signs Pulse 56 07/18/24 14:54 BP 120/82 07/18/24 14:54 Pulse Ox 97 07/18/24 14:54 Oxygen Delivery Method Room Air 07/18/24 14:54 BMI result Body Mass Index 34.3 Tobacco/Smoking Status: Tobacco use Status Tobacco use date assessed 07/18/24 07/18/24 14:58 Patient Tobacco Use Status Never used Tobacco 07/18/24 14:58 e-Cigarette/Vaping Use Never Used 07/18/24 14:58 PHQ-9: PHQ-9 Score PHQ-9: Total score 0 07/18/24 15:38 Depression Screening Interpretation: Negative Thrive Assessment: Date of Thrive Assessment Date Thrive assessed 07/18/24 07/18/24 14:58 Currently or been in a relationship where the following occur: No concerns reported Const General: no acute distress and alert HENMT Ears: TM's normal bilaterally and EAC's normal Throat: Yes posterior oropharynx normal and Yes tonsils normal (no TP congestion) Neck Neck: Yes no lymphadenopathy and Yes supple Thyroid: Thyroid normal Resp Auscultation: clear to auscultation bilaterally, no rales and no wheezes Cardio Rate: regular rate Rhythm: regular rhythm Heart sounds: no murmurs GI Palpation (GI): Soft to palpation and nontender Auscultation: normal bowel sounds General: Yes no CVA tenderness Back/Spine/Pelvis Back: no CVA tenderness Thoracic/Lumbar Spine: thoracic and lumbar spine normal to inspection Skin Rashes: no rashes Extrem General: Yes no clubbing, cyanosis or edema Assessment and Plan Assessment & Plan (1) Pure hypercholesterolemia: Code(s): E78.00 - Pure hypercholesterolemia, unspecified Plan: Reinforced low cholesterol diet Will have patient recheck his fasting lipids USHA for follow up - he was supposed to get these done a few months ago but he was not able to do so Will just have him use his current orders (updated) for his lab draw (2) Impaired fasting glucose: Code(s): R73.01 - Impaired fasting glucose Plan: Reinforced low calorie diet/exercise as tolerated FBS was slightly elevated but HgbA1c was normal at 5.5% when last checked in August 2022 Will recheck his FBS and HgbA1c USHA for follow up (3) Vitamin D deficiency: Code(s): E55.9 - Vitamin D deficiency, unspecified Plan: He is reminded that his Vitamin D level was low when last checked in August 2022 Will recheck his Vitamin D level for follow up and if it still low, will start him on Vitamin D supplements (4) Elevated PSA: Code(s): R97.20 - Elevated prostate specific antigen [PSA] Plan: Advised that his serum PSA was slightly higher than recommended at 3.36 (<2.5 is normal) when last checked in August 2022 Will recheck his PSA level for follow up and if his level remains elevated, will consider referring him to urology for further evaluation and management (5) Obesity (BMI 30-39.9): Code(s): E66.9 - Obesity, unspecified Plan: Reinforced diet/exercise as tolerated/lose weight He has lost a few pounds since his last visit He works out and lifts weight regularly at the gym at least 3 times a week and have advised him that a significant part of his weight may be due to his (increased) muscle mass Plan To return as scheduled in December 2024 for his next annual physical examination Have advised patient that we will reach out to him if we will need him to get any labs done before he comes back in December 2024 - advised that we will have to see how his labs come out first as soon as he gets them done sometime next week Coding Level of Care Code Est Pt Level 3 (81838) Diagnoses Pure hypercholesterolemia E78.00 Impaired fasting glucose R73.01 Vitamin D deficiency E55.9 Elevated PSA R97.20 Obesity (BMI 30-39.9) E66.9
== END 2024-07-18 15:39 | disposition home or self-care (01) ==
PROVIDERS: PCP Internal Medicine; Visit Provider Internal Medicine
DX: E78.00 Pure hypercholesterolemia, unspecified (principal); R73.01 Impaired fasting glucose; E55.9 Vitamin D deficiency, unspecified; R97.20 Elevated prostate specific antigen [PSA]
CPT/HCPCS: 99213

== ENCOUNTER 2024-12-29 13:38 | Outpatient (AMB) | payer BC, SELFPAY ==
[2024-12-29 13:58] VITALS: BP 122/78; PULSE 63; O2SAT 95; BMI 34.6
--- NOTE | 2024-12-29 13:58 | A.OFFPC_ITS ---
Vital Signs 12/29/24 13:58 Height 5 ft 6 in Weight 214 lb 2 oz BMI 34.6 BP 122/78 Blood Pressure Location Lt brachial Position Sitting Pulse 63 Pulse Source Pulse Oximeter Pulse Oximetry (%) 95 Oxygen Delivery Method Room Air Intake Visit Reasons: physical Enrichment Specialist Required: No Accompanied by: Self / Same As Patient Allergies No Known Allergies Allergy (Verified 12/29/24 14:20) Medication List - Last Reconciled 12/29/24 by Edenilson Mas MD No Known Home Meds Tobacco use date assessed: 12/29/24 Dental Screening Dental Screen Date: 12/29/24 Did you have a dental visit in the last 12 months?: Yes Did you have a dental problem in the last 6 months where you did not have access to dental care?: No Was dental information given to patient?: Patient has dentist HPI physical HPI Details Patient comes in today for his annual physical examination States that he feels okay He denies any headaches or dizziness Denies any chest pains, no SOB No nausea/vomiting, no abdominal pain No change in bowel habits noted He denies any acute urinary symptoms He was not able to get his previously ordered labs done yet - states that he has not yet eaten today and can go over and get his labs done as soon as he leaves the office today after his appointment He had his screening colonoscopy done with Dr. Maldonado back in 2020 - had a polyps removed that came out as a tubular adenoma on pathology and he is recommended to have repeat colonoscopy done in 5 years (2025) PFSH Medical History Vitamin D deficiency Tubular adenoma Obesity (BMI 30-39.9) Impaired fasting glucose Pure hypercholesterolemia Surgical History Hx of vasectomy Hx of colonoscopy History of facial surgery History of gallbladder disease Social History Housing: House Alcohol intake: current Alcohol intake frequency: holidays/special occasions only Patient Tobacco Use Status: Never used Tobacco e-Cigarette/Vaping Use: Never Used Second Hand Smoke Exposure: Yes service: No Current occupational status: employed 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 1. Little interest or pleasure in doing things: not at all 2. Feeling down, depressed, or hopeless: not at all 3. Trouble falling or staying asleep, or sleeping too much: not at all 4. Feeling tired or having little energy: not at all 5. Poor appetite or overeating: not at all 6. Feeling bad about yourself - or that you are a failure or have let yourself or your family down: not at all 7. Trouble concentrating on things, such as reading the newspaper or watching television: not at all 8. Moving or speaking so slowly that other people could have noticed. Or the opposite - being so fidgety or restless that you have been moving around a lot more than usual: not at all 9. Thoughts that you would be better off or of hurting yourself in some way: not at all Total score: 0 Depression Screening Interpretation: Negative Depression Screening Done: Yes 77557 - PHQ-9 Billing: Yes Source: Developed by Drs. Hang Light, Lorie Donovan, Tawanda Johansen and colleagues, with an educational edy from [employer]. Thrive Questionnaire Date Thrive assessed: 12/29/24 I am a: Patient What is your living situation today?: I have a steady place to live Within the past 12 months, did the food you bought not last and you didn't have the money to get more?: I choose not to answer this question Within the past 12 months, did you worry whether your food would run out before you got money to buy more?: I choose not to answer this question Do you have trouble paying for medicines?: No Do you have trouble getting transportation to medical appointments?: No Do you have trouble paying your heating and electricity bill?: No Do you have trouble taking care of your child, family member or friend?: No Do you have trouble with day-to-day activities such as bathing, preparing meals, shopping, managing finances, etc.?: No Are you currently unemployed and looking for a job?: No Are you interested in more education?: I choose not to answer this question Please select the resources that you would like help with: None Currently or been in a relationship where the following occur: No concerns re ported THRIVE Score: 0 AUDIT C Alcohol Use Questionnaire (AUDIT-C) 1. How often do you have a drink containing alcohol?: Monthly or less 2. How many drinks containing alcohol do you have on a typical day when you are drinking?: 1 or 2 3. How often do you have six or more drinks on one occasion?: Less than monthly Total Score: 2 Score Reviewed/Action Taken: Yes ANSELMO-7 AMB Questionnaire ANSELMO-7 Date ANSELMO - 7 assessed: 12/29/24 Feeling nervous, anxious, or on edge: 0 = Not at all Not being able to stop or control worryin = Not at all Worrying too much about different things: 0 = Not at all Trouble relaxin = Not at all Being so restless that it is hard to sit still: 0 = Not at all Becoming easily annoyed or irritable: 0 = Not at all Feeling afraid as if something awful might happen: 0 = Not at all Total ANSELMO-7 score (0-4 normal; 5-9 mild; 10-14 moderate; 15-21 severe): 0 Source: Developed by Drs. Hang Light, Lorie Donovan, Tawanda Johansen and colleagues, with an educational edy from [employer]. Review of Systems Const Denies chills, Denies fatigue, Denies fever(s), Denies headache(s), Denies malaise and Denies weakness Eyes Denies blurry vision, Denies change in vision, Denies irritation and Denies itchy eyes ENT Denies dysphagia, Denies dizziness, Denies otalgia, Denies headache(s), Denies nasal congestion, Denies neck pain, Denies odynophagia and Denies sore throat Card Denies chest pain, Denies rapid heart rate, Denies irregular heart rhythm, Denies palpitations and Denies dyspnea Resp Denies chest congestion, Denies cough, Denies dyspnea and Denies wheezing GI Denies abdominal pain, Denies bloating, Denies constipation, Denies dysphagia, Denies heartburn, Denies diarrhea, Denies nausea, Denies odynophagia and Denies vomiting Denies hematuria, Denies difficulty urinating, Denies dysuria, Denies urinary frequency and Denies urinary urgency Musc Denies back pain, Denies arthralgias, Denies joint swelling, Denies muscle weakness and Denies neck pain Skin/Breast Denies change in pigmentation, Denies lesions, Denies rash and Denies unusual bruising Neuro Denies dizziness, Denies headache(s), Denies paresthesias and Denies weakness Endo Denies fatigue and Denies palpitations Aller/Immun Denies itchy eyes and Denies wheezing Physical exam (Primary Care) Vital Signs: Last Vital Signs Pulse 63 12/29/24 13:58 BP 122/78 12/29/24 13:58 Pulse Ox 95 12/29/24 13:58 Oxygen Delivery Method Room Air 12/29/24 13:58 BMI result Body Mass Index 34.6 Tobacco/Smoking Status: Tobacco use Status Tobacco use date assessed 12/29/24 12/29/24 14:03 Patient Tobacco Use Status Never used Tobacco 12/29/24 14:03 e-Cigarette/Vaping Use Never Used 12/29/24 14:03 PHQ-9: PHQ-9 Score PHQ-9: Total score 0 12/29/24 14:03 Depression Screening Interpretation: Negative Thrive Assessment: Date of Thrive Assessment Date Thrive assessed 12/29/24 12/29/24 14:03 Currently or been in a relationship where the following occur: No concerns reported Const General: no acute distress, alert and awake Orientation/consciousness: patient oriented x3 HENMT Head: Yes normocephalic and Yes atraumatic Ears: external ears normal, TM's normal bilaterally and EAC's normal General nose exam: No nasal discharge present Face and sinus: Yes normal facial exam and Yes sinuses nontender Teeth and gingiva: dentition normal Throat: Yes posterior oropharynx normal and Yes tonsils normal (no TP con gestion) Eyes Eyelids: Yes eyelids normal Conjunctivae: conjunctivae normal Pupils: Equal, round and reactive pupils present EOM: EOMs intact bilaterally Neck Neck: Yes supple and No lymphadenopathy Thyroid: Thyroid normal Resp Auscultation: clear to auscultation bilaterally, no rales and no wheezes Cardio Rate: regular rate Rhythm: regular rhythm Heart sounds: no murmurs GI Palpation (GI): Soft to palpation, nontender and No hepatosplenomegaly present Auscultation: normal bowel sounds General: Yes no CVA tenderness Back/Spine/Pelvis Back: no CVA tenderness Thoracic/Lumbar Spine: thoracic and lumbar spine normal to inspection Skin Lesions: no lesions Rashes: no rashes Neuro General: patient oriented x3, moves all extremities, no focal motor deficits and CN's II-XI intact bilaterally Cranial nerves: Yes Equal, round and reactive pupils present Cognition (Neuro): normal cognition Gait exam (Neuro): Normal gait present Extrem General: Yes no clubbing, cyanosis or edema Coding Level of Care Code Est Pt Prev Care 40-64y(12325) Diagnoses Annual physical exam Z00.00 Pure hypercholesterolemia E78.00 Impaired fasting glucose R73.01 Vitamin D deficiency E55.9 Elevated PSA R97.20 Obesity (BMI 30-39.9) E66.9 Additional Codes PHQ-9 - 18021 - PHQ-9 Billing: Yes ([id number]) Assessment & Plan Assessment & Plan (1) Annual physical exam: Code(s): Z00.00 - Encounter for general adult medical examination without abnormal findings Category: Medical Plan: Check labs He is up-to-date on his colon cancer screening - had his colonoscopy done back in 2020 and was recommended to have repeat colonoscopy done in 5 years (2025) due to (+) tubular adenoma (2) Pure hypercholesterolemia: Code(s): E78.00 - Pure hypercholesterolemia, unspecified Category: Medical Plan: His cholesterol numbers were okay when they were last checked in April 2022 Reinforced low cholesterol diet Will recheck his fasting lipids and labs USHA for follow up (3) Impaired fasting glucose: Code(s): R73.01 - Impaired fasting glucose Category: Medical Plan: Reinforced low calorie diet/exercise as tolerated Will recheck his FBS and HgbA1c USHA for follow up (4) Vitamin D deficiency: Code(s): E55.9 - Vitamin D deficiency, unspecified Category: Medical Plan: Will recheck his Vitamin D level for follow up (5) Elevated PSA: Code(s): R97.20 - Elevated prostate specific antigen [PSA] Category: Medical Plan: Advised that his serum PSA was slightly higher than recommended at 3.36 (<2.5 is normal) when it was last checked in August 2022 Will recheck his PSA level for follow up and if his level remains elevated, will consider referring him to urology for further evaluation and management (6) Obesity (BMI 30-39.9): Code(s): E66.9 - Obesity, unspecified Category: Medical Plan: Reinforced diet/exercise as tolerated/lose weight Plan To return in 1 year for his next annual physical examination Orders: Orders Complete Blood Count Auto Diff Today D64.9 - Anemia, unspecified, Z00.00 - Encounter for general adult medical examination without abnormal findings Prostate Specific Antigen Today N40.0 - Benign prostatic hyperplasia without lower urinary tract symptoms Comprehensive Platinum. Panel Fast Today E78.00 - Pure hypercholesterolemia, unspecified, Z00.00 - Encounter for general adult medical examination without abnormal findings Lipid Panel Today E78.00 - Pure hypercholesterolemia, unspecified, Z00.00 - Encounter for general adult medical examination without abnormal findings TSH reflex Free T4 Today E78.00 - Pure hypercholesterolemia, unspecified, Z00.00 - Encounter for general adult medical examination without abnormal findings UA CC w/rflx Micro + Cult Today R30.0 - Dysuria, Z00.00 - Encounter for general adult medical examination without abnormal findings Vitamin D 25-OH Total Today E55.9 - Vitamin D deficiency, unspecified, Z00.00 - Encounter for general adult medical examination without abnormal findings Hemoglobin A1c Today R73.9 - Hyperglycemia, unspecified, Z00.00 - Encounter for general adult medical examination without abnormal findings
--- OUTSIDE RECORDS SUMMARY | 2024-12-29 15:37 | XMS_ITS | Clinical Summary ---
Author Organization [facility] Address [phone] [place] [address] Care Team Providers Care Procedural Nurse Name Role Phone Edenilson Mas MD Primary Care Provider [phone] Medications Medication Sig Dispensed Refills Start Date End Date Status tobramycin-dexametha sone (TOBRADEX) ophthalmic suspension 1 drop into affected eye Ophthalmic TWICE DAILY Active chlorhexidine (PERIDEX) 0.12 % solution as directed Mouth/Throat Four times a day Active Social History Tobacco Use Types Packs/Day Years Used Date Smoking Tobacco: Never Assessed Education Answer Date Recorded Are you interested in more education? Not on ismael e 03/02/2023 Are you concerned about learning? Not on file 03/02/2023 No 03/02/2023 No 03/02/2023 Digital Access Answer Date Recorded No 03/31/2023 No 03/31/2023 No 03/31/2023 Reliable internet access at home? Not on file 03/31/2023 Device with a working camera? Not on file Sex and Gender Information Value Date Recorded Sex Assigned at Not on file Gender Identity Not on file Sexual Orientation Not on file Last Filed Vital Signs Vital Sign Reading Time Taken Comments Blood Pressure 136/74 03/01/2017 10:19 AM EDT Pulse - - Temperature - - Respiratory Rate - - Oxygen Saturation - - Inhaled Oxygen Concentration - - Weight 97.1 kg (214 lb) 03/01/2017 10:19 AM EDT Height 170.2 cm (5' 7 ) 03/01/2017 10:19 AM EDT Body Mass Index 33.52 03/01/2017 10:19 AM EDT Plan of Treatment Health Maintenance Due Date Last Done Comments LIPID PANEL 1972 DEPRESSION SCREENING 1984 SMOKING Hx and SMOKELESS TOBACCO SCREENING 1985 HEPATITIS B SCREENING 1990 HEPATITIS C SCREENING 1990 HIV ONE-TIME SCREENING (18-6 5 YEARS) 1990 HEPATITIS B VACCINES (1 of 3 - 19+ 3-dose series) 1991 COLOGUARD 2017 COLONOSCOPY 2017 COLORECTAL CANCER SCREENING 2017 FIT TEST 2017 FOBT 2017 SIGMOIDOSCOPY 2017 VIRTUAL COLONOSCOPY 2017 PNEUMOCOCCAL VACCINES (50+ years) (1 of 1 - PCV) 2022 ZOSTER VACCINES (1 of 2) 2022 INFLUENZA VACCINE (#1) 2024 COVID-19 VACCINE (4 - 2023-2 5 season) 2024 11/08/2021, 03/16/2021, 02/14/2021 Adult Td,Tdap Booster 05/09/2029 05/09/2019 , 02/25/2017 HEPATITIS A VACCINES Aged Out No long er eligible based on patient's age to complete this topic HIB VACCINES Aged Out No longer eligi ble based on patient's age to complete this topic MENINGOCOCCAL VACCINES (ACWY) Aged Out No longer eligible based on patient's age to complete this topic Medical Devices Not on file Care Teams Procedural Nurse Relationship Specialty Start Date End Date Edenilson Mas MD [address] [place] [address] [address] [place] [address] PCP - General 08/20/17 Additional Source Comments The information contained in this document represents components of the legal health record. It is not the complete legal health record.[facility]
== END 2024-12-29 14:28 | disposition home or self-care (01) ==
PROVIDERS: PCP Internal Medicine; Visit Provider Internal Medicine
DX: Z00.00 Encounter for general adult medical examination without abnormal findings (principal); E78.00 Pure hypercholesterolemia, unspecified; E66.9 Obesity, unspecified; Z68.34 Body mass index [BMI] 34.0-34.9, adult; R73.01 Impaired fasting glucose; E55.9 Vitamin D deficiency, unspecified; R97.20 Elevated prostate specific antigen [PSA]

== ENCOUNTER 2024-12-29 13:38 | Outpatient (REF) | payer BC, SELFPAY ==
[2024-12-29 15:16] LABS: MANUAL DIFF FLAG NO
[2024-12-29 16:21] LABS: Basophils Absolute Auto 0.1 X10*3/uL (0.0-0.2); Basophils Percent Auto 0.8 % (0-2); Eosinophils Absolute Auto 0.4 X10*3/uL (0.0-0.4); Eosinophils Percent Auto 4.5 % (0-4); Hematocrit 45.4 % (42.0-52.0); Hemoglobin 14.9 g/dl (14.0-18.0); Imm Gran Abs Auto 0.04 X10*3/uL (0.00-0.03); Imm Gran Pct Auto 0.5 % (0.0-0.4); Lymphocytes Absolute Auto 2.7 X10*3/uL (1.2-4.9); Lymphocytes Percent Auto 34.6 % (20-40); Mean Corpuscular HGB Conc 32.8 g/dl (31.0-36.0); Mean Corpuscular Hemoglobin 28.4 pg (27.0-33.0); Mean Corpuscular Volume 86.6 fL (80.0-98.0); Mean Platelet Volume 11.2 fL (9.4-12.4); Monocytes Absolute Auto 0.6 X10*3/uL (0.1-1.2); Monocytes Percent Auto 7.9 % (2-11); Neutrophils Percent Auto 51.7 % (45-73); Platelet Count 261 X10*3/uL (160-400); Red Blood Count 5.24 X10*6/uL (4.60-5.80); Red Cell Distribution Width 12.8 % (11.0-16.0); White Blood Count 7.8 X10*3/uL (4.8-10.8)
[2024-12-29 16:24] LABS: Appearance Urine Clear; Color Urine Yellow; Glucose Urine UA Negative (Negative); Leukocyte Esterase Urine Negative (Negative); Nitrite Urine Negative (Negative); Specific Gravity - Urine 1.025 (1.005-1.025); Urine Blood Negative (Negative); Urine Ketones Negative (Negative); Urine Protein Negative (Neg-Trace)
[2024-12-29 16:25] LABS: Estimated Average Glucose 117 mg/dL; Hemoglobin A1C 148.1789 umol/L; Hemoglobin A1c % 5.7 % (<6.0); Total Hemoglobin (HGBA1C) 3820.2416 umol/L
--- OUTSIDE RECORDS SUMMARY | 2024-12-29 17:08 | XMS_ITS | Clinical Summary ---
Author Organization [facility] Address [phone] [place] [id number] Care Team Providers Care Superintendent [employer] Name Role Phone Edenilson Mas MD Primary Care Provider [phone] Medications Medication Sig Dispensed Refills Start Date [...] Medical Devices Not on file Care Teams Superintendent [employer] Relationship Specialty Start Date End Date Edenilson Mas MD [address] [place] [address] [address] [place] [address] PCP - General 08/20/17 Additional Source Comments The information contained in this document represents components of the legal health record. It is not the complete legal health record.[facility]
[2024-12-29 17:17] LABS: Alanine Aminotransferase 47 U/L (0-40); Albumin Level 4.3 g/dL (3.5-5.0); Anion Gap 12 (12-20); Aspartate Amino Transferase 26 U/L (5-37); Bilirubin Total 0.5 mg/dL (0.0-1.0); Blood Urea Nitrogen 13 mg/dL (9-16); Calcium 9.6 mg/dL (8.4-10.2); Carbon Dioxide 28 mmol/L (22-29); Chloride 109 mmol/L (96-108); Cholesterol 192 mg/dL (<200); Estimated Glomerular Filt Rate > 60; Glucose Fasting 98 mg/dL (60-99); HDL Cholesterol 51 mg/dL (>40); LDL Cholesterol Calculated 122 mg/dL (<100); Potassium 4.6 mmol/L (3.3-5.1); Sodium 144 mmol/L (135-145); Total Protein 7.7 g/dL (6.5-8.0); Triglycerides 99 mg/dL (<150)
[2024-12-29 17:33] LABS: Vitamin D 25-OH Total 13.7 ng/mL (>30)
[2024-12-29 17:53] LABS: Alkaline Phosphatase 71 U/L (39-117)
== END 2024-12-29 13:39 | disposition home or self-care (01) ==
LOC: HO.LAB 13:38
PROVIDERS: PCP Internal Medicine; Visit Provider Internal Medicine
DX: Z00.00 Encounter for general adult medical examination without abnormal findings (principal); E78.00 Pure hypercholesterolemia, unspecified; R73.01 Impaired fasting glucose; E55.9 Vitamin D deficiency, unspecified; R97.20 Elevated prostate specific antigen [PSA]; E66.9 Obesity, unspecified; Z68.34 Body mass index [BMI] 34.0-34.9, adult; D64.9 Anemia, unspecified; N40.0 Benign prostatic hyperplasia without lower urinary tract symptoms; R30.0 Dysuria; Z12.5 Encounter for screening for malignant neoplasm of prostate
CPT/HCPCS: 36415; 80053; 80061; 81003; 82306; 83036; 84153; 84443; 85025; 96127